=== PATIENT | male | born 1995 | race Two or more races ===

== ENCOUNTER 2019-09-22 09:05 | Emergency (ER) | payer BC ==
[~2019-09-22] VITALS: Ht 165.1 cm; Wt 65.0 kg
[2019-09-22] MEDS ORDERED: SODIUM CHLORIDE 0.9% 1,000 ML IV ONE (10:26)
[2019-09-22] MEDS ORDERED: KETOROLAC 30MG/ML VIAL IV STA (10:26)
[2019-09-22 11:01] LABS: BASOPHILS % 1.1 % (0.0-2.0); EOSINOPHILS % 1.8 % (0.0-5.0); HEMOGLOBIN. 14.5 g/dL (14.0-18.0); LYMPHOCYTES % 30.1 % (20.0-50.0); MEAN CORPUSCULAR HEMOGLOBIN 28.2 pg (28.0-32.0); MEAN CORPUSCULAR VOLUME 83.3 fL (80.0-94.0); MEAN PLATELET VOLUME 8.1 fl (7.4-10.4); MONOCYTES % 5.3 % (2.0-8.0); NEUTROPHILS % 61.7 % (40.0-76.0); PLATELET 232 x1000/uL (130-400); RED BLOOD CELL COUNT 5.16 mill/uL (4.7-6.1); RED CELL DISTRIBUTION WIDTH 12.9 % (11.6-14.6)
[2019-09-22 11:03] LABS: CHLORIDE 106 mEq/L (98-107)
[2019-09-22 12:22] VITALS: BP 118/71
== END 2019-09-22 12:24 | disposition home or self-care (01) ==
LOC: ER 09:05
DX: B34.9 Viral infection, unspecified (principal)
CPT/HCPCS: 36415; 71045; 80053; 82962; 85025; 87804; 99284; J7030